=== PATIENT | female | born 1990 | race Caucasian/White ===

== ENCOUNTER 2023-08-28 11:15 | Emergency (ER) | payer BC, SELFPAY ==
[2023-08-28 11:18] VITALS: BP 154/94; PULSE 80; RESP 20; TEMP 36.7; O2SAT 100; BMI 31.3
[2023-08-28 11:37] VITALS: RESP 14
--- NOTE | 2023-08-28 11:37 | ED_ITS ---
HPI - General Adult General Time Seen by Provider: 11:37 Date Seen: 08/28/23 Chief complaint: Post Op Complication Stated complaint: infection - post surgical Time Seen by Provider: 08/28/23 11:33 Source: patient and RN notes reviewed Mode of arrival: ambulatory Limitations: no limitations History of Present Illness HPI narrative: This 33-year-old female is referred to us from [place] where she had ultrasound imaging today. She reportedly has an abscess complicating a liposuction procedure that was done on August 08 in [place]. She had a lipoma 360 fat transfer to her buttocks. She has noticed swelling in her legs, most prominent in the left thigh for about 2 weeks now. She feels that she has maybe been having some fevers at night. She has just been using Tylenol for pain management. This left thigh is painful to touch. She saw a provider on Monday whom ordered an outpatient follow-up ultrasound for concern of possible fluid or hematoma. There reportedly is no general surgeon in [place] and our facility was contacted. Our radiologist Dr. Bach and our general surgeon Dr. Velazquez did recommend that the patient come here, CT imaging and labs be considered, requested that she be evaluated in the ED appropriately. It was reported that she had a buttock abscess to us in the ED. Related Data Home Medications ?Medication ?Instructions ?Recorded ?Confirmed ascorbic acid (vitamin C) 500 mg 500 mg PO DAILY 08/28/23 08/28/23 tablet (Vitamin C With Graciela Hips) losartan 25 mg tablet 25 mg PO DAILY 08/28/23 08/28/23 semaglutide 1 mg/dose (4 mg/3 mL) 1 mg subcut 08/28/23 subcutaneous pen injector (Ozempic) Allergies Allergy/AdvReac Type Severity Reaction Status Date / Time No Known Drug Allergies Allergy Verified 08/28/23 12:57 Review of Systems Status of ROS: Reports: 6 or more systems reviewed and unremarkable except as noted in History and below [facility] Surgical History (Updated 08/28/23 @ 11:50 by Suly Bloom MD) History of tubal ligation ?Z98.51 - Tubal ligation status (ICD-10) Social History Smoking Status: Never smoker Do you use any of these nicotine containing products: None How often do you have a drink containing alcohol: monthly or less How often do you have six or more drinks on one occasion: Never AUDIT-C Alcohol total score: 1 Non-prescribed substance use: denies use Exam Const: Vital Signs, click to edit/add: Vital Signs - 24 hr 08/28/23 11:18 08/28/23 11:37 Temperature 98.1 F Pulse Rate [Pulse Oximeter] 80 Respiratory Rate 20 Respiratory Rate [ Left Lateral Leg] 14 Blood Pressure [Ri ght Upper Arm] 154/94 H Pulse Oximetry 100 Oxygen Delivery Me thod Room Air This 33-year-old female is alert, interactive, no apparent distress. She has a cushion that she is sitting on, is preferring the chair in exam room 7. Sclera clear, face atraumatic, speech normal. Lungs clear, good air entry, no wheezing crackles. CV regular rate and rhythm, no murmur, normal S1-S2, no S3-S4. Over her left lateral trochanter area she has some mild erythema, central fluctuance in tenderness throughout this area it looks to be about 8-10 cm long, maybe about 6-8 cm wide. Certainly could be a seroma or abscess clinically. She has very small well-healing incisions over her upper buttocks. There is some mild left medial gluteal ecchymosis. Her buttocks are not tender, this concerning finding seems to be actually in the extremity over the left thigh. Abdomen is soft, nontender, and nondistended. Documenting provider has reviewed patient's vital signs: yes Course Course ED Course: This patient presumably has a complication of liposuction with possible left thigh abscess. Will obtain imaging of her pelvis and carry it into the left upper extremity with CT imaging. Will get basic labs. She is not febrile at this time but is stating she has fevers at night. In this patient, do not feel blood cultures are indicated at this time. There is a severe national shortage of the blood culture vials in the system we are using and we are nearly out. Should she spike a fever or have further concerns here, this can be reconsidered. Reevaluation(s) Time of Reevaluation #1: 13:33 Reevaluation #1: Reviewed reassuring labs. Did review with patient that her hemoglobin is 10.7, we did discuss the possibility of her menstrual cycles as the cause of this. She can talk to her primary care about this further outpatient. There is no evidence clinically of infection at this time. She does have a seroma / hematoma in her left thigh. Did apply an Arsalan bandage. She felt like it was fitting but not too tight. Reviewed the surgeon's recommendations for treatment. Consultations Consultation #1: General surgeon Dr. Velazquez did stop by, we reviewed the images. She feels that this is likely seroma/ hematoma. We reviewed patient's labs. She would not recommend drainage of this, does not believe that antibiotics are necessary from the images, labs and my report of the clinical exam. She has made recommendations for compression, alternating ice and heat and follow up in clinic with Dr. Gonzáles. Time: 13:02 Vital Signs Vital signs: Initial Vital Signs Temperature 98.1 F 08/28/23 11:18 Temperature Source Temporal Artery Scan 08/28/23 11:18 Pulse Rate 80 08/28/23 11:18 Respiratory Rate 20 08/28/23 11:18 Blood Pressure 154/94 H 08/28/23 11:18 Blood Pressure Mean 114 H 08/28/23 11:18 Blood Pressure Position Sitting 08/28/23 11:18 Pulse Oximetry 100 08/28/23 11:18 Oxygen Delivery Method Room Air 08/28/23 11:18 Vital Signs Temperature 98.1 F 08/28/23 11:18 Pulse Rate 80 08/28/23 11:18 Respiratory Rate 20 08/28/23 11:18 Blood Pressure 154/94 H 08/28/23 11:18 Pulse Oximetry 100 08/28/23 11:18 Oxygen Delivery Method Room Air 08/28/23 11:18 Temperature 98.1 F 08/28/23 11:18 Pulse Rate 80 08/28/23 11:18 Respiratory Rate 14 08/28/23 11:37 Blood Pressure 154/94 H 08/28/23 11:18 Pulse Oximetry 100 08/28/23 11:18 Oxygen Delivery Method Room Air 08/28/23 11:18 Medical Decision Making Lab Data Lab results reviewed: Yes I reviewed the patient's lab results Labs: Lab Results 08/28/23 Range/Units 12:04 WBC 4.96 (4.50-11.00) K/uL RBC 3.81 L (4.00-5.20) m/uL Hgb 10.7 L (12.0-16.0) gm/dL Hct 34.9 (33.0-51.0) % MCV 92 (80-100) fL MCH 28 (26-34) pg MCHC 31 L (32-36) gm/dL RDW Coeff of [place] 16.5 H (11.5-15.5) % Plt Count 249 (140-440) K/uL Neut % (Auto) 57.1 (42.0-72.0) % Lymph % (Auto) 30.0 (20-44) % [place] % (Auto) 8.7 (0.0-11.0) % Eos % (Auto) 3.2 (0.0-7.0) % Baso % (Auto) 1.0 (0.0-3.0) % Neut # (Auto) 2.83 (1.7-7.0) K/uL Lymph # (Auto) 1.49 (0.90-2.90) K/uL [place] # (Auto) 0.40 (0.00-0.90) K/UL Eos # (Auto) 0.16 (0.00-0.50) K/uL Baso # (Auto) 0.05 (0.00-0.30) K/uL Abs Immat Gran (auto) 0.00 (0.00-0.30) K/uL Imm/Tot Granulo (auto) 0.0 % Sodium 138 (135-149) mmol/L Potassium 4.0 (3.6-5.1) mmol/L Chloride 106 (96-114) mmol/L Carbon Dioxide 25 (20-32) mmol/L Anion Gap 7 (7-15) mEq/L BUN 17 (5-24) mg/dL Creatinine 0.5 (0.5-1.5) mg/dL Estimated Creat Clear 144.00 Estimated GFR 127 ml/min Glucose 93 (60-115) mg/dL Lactate 1.0 (0.5-1.9) mmol/L Calcium 9.1 (8.4-10.6) mg/dL C-Reactive Protein < 0.5 L (0.5-1.0) mg/dL Urine HCG, Qual Negative (Negative) Imaging Data CT pelvis: Attestation: I have reviewed the pertinent imaging results. Radiologist's impression: Patient: [facility] Facility:?[facility] Patient ID:?[id number] Site Patient ID:?[id number]. Site :?1990 Study:?CT-Pelvis W/ 92CC ISOVUE 370-08/28/2023 1:02:25 PM Ordering Physician:Maggie Tubbs Final Report: Indication: Clinical signs and symptoms of thigh infection status post liposuction. Technique: CT of the pelvis was performed. The study was performed following the uneventful intravenous administration of 92 cc of Isovue 370. Imaging was acquired from above the umbilicus through below the lesser trochanter. Sagittal and coronal reformatted imaging was performed. PLEASE NOTE that the left femur portion of the study was performed as a separate study and is reported as a separate examination Please note that all CT scans at this facility use dose modulation, iterative reconstruction, and/or weight-based dosing when appropriate to reduce radiation dose to as low as reasonably achievable. Comparison: None prior to today Findings: The osseous structures of the lower spine and pelvis appear normal. There is no soft tissue abnormality identified within the lower abdomen or pelvis. There is cutaneous and subcutaneous induration diffusely involving the visualized abdominal wall and upper thighs. This is likely either hemorrhage or less likely infection associated with recent liposuction. There is no collection identified in the areas visualized on this examination. This study does not include the discrete fluid collection noted in the left thigh which was identified and described on a separate study Impression: 1. Mild diffuse cutaneous and subcutaneous induration of the lower abdominal wall and upper thigh as visualized. No collection. 2. The fluid collection in the soft tissue images of the left thigh are not visualized on this study. The left thigh examination was reported under separate cover. Please note that all CT scans at this facility use dose modulation, iterative reconstruction, and/or weight-based dosing when appropriate to reduce radiation dose to as low as reasonably achievable. Dictated by Ottoniel Mckenzie MD @ 08/28/2023 1:26:29 PM (Electronic Signature) CT left thigh: Attestation: I have reviewed the pertinent imaging results. Radiologist's impression: Patient: ESME GORDON Facility:?[facility] Patient ID:?[id number] Site Patient ID:?[id number]. Site :?1990 Study:?CT-Extremity Left FEMUR W/92CC ISOVUE 370-08/28/2023 1:04:18 PM Ordering Physician:Maggie Tubbs Final Report: EXAM: CT OF THE LEFT FEMUR, WITH IV CONTRAST CLINICAL INDICATION: Post liposuction infection COMPARISON PLAIN FILMS: None. COMPARISON CROSS-SECTIONAL IMAGING STUDIES: None. TECHNICAL: Enhanced CT of the left femur with axial images. Sagittal oblique and coronal oblique images were created. Contrast: Isovue 370, 92 mL IV. FINDINGS: OSSEOUS STRUCTURES: No fracture or osseous lesion. SOFT TISSUES: Elliptical complex fluid collection in the lateral subcutaneous tissues of the proximal to mid femoral diaphyseal region measures 11.3 x 5.4 x 2.4 cm. There is a layering fluid fluid level. Findings consistent with a hematoma/seroma. Infection of the fluid collection could not be excluded. [id number] amount of lateral subcutaneous edema. Subcutaneous edema in the left hip, gluteal and lower abdominal wall. No soft tissue emphysema. TENDONS AND MUSCLES: No intramuscular fluid collection or hematoma. No muscular atrophy. No retracted tendon tear. JOINTS: No joint effusion. IMPRESSION: 1. Complex fluid collection in the lateral subcutaneous tissues of the proximal to mid femoral diaphyseal region with layering fluid fluid level. Adjacent subcutaneous edema. Findings consistent with a hematoma/seroma. Infection of the fluid collection can not be excluded. 2. Subcutaneous edema in the left hip, gluteal and lower abdominal wall. 3. Remainder unremarkable. Please note that all CT scans at this facility use dose modulation, iterative reconstruction, and/or weight-based dosing when appropriate to reduce radiation dose to as low as reasonably achievable. Dictated by Taurus Gutierrez MD @ 08/28/2023 1:17:41 PM (Electronic Signature) Discharge Plan Discharge Clinical Impression: Seroma Hematoma of left thigh Qualifiers: Encounter type: initial encounter Qualified Code(s): S70.12XA - Contusion of left thigh, initial encounter Patient Disposition: Home, Self-Care Condition: Stable Instructions: Hematoma (ED) Additional Instructions: Use Arsalan wrap for compression. Alternate ice and heat to this leg to help decrease pain and swelling. Need to schedule follow-up in clinic within the next week for recheck. If you develop consistent temperatures over 100.4? F, have increasing pain, redness, swelling at the site of the hematoma, please seek re-evaluation. Continue to follow your postoperative recommendations from your surgeon. Prescriptions: No Action ascorbic acid (vitamin C) [Vitamin C With Graciela Hips] 500 mg tablet 500 mg PO DAILY losartan 25 mg tablet 25 mg PO DAILY Ozempic 1 mg/dose (4 mg/3 mL) pen injector 1 mg subcut Follow Up/Referrals: Sachi Gonzáles MD [Primary Care Provider] - Stand Alone Forms: [employer] Info Instructions
--- NOTE | 2023-08-28 11:44 | CRLHL7_ITS ---
For Patients: As a result of the Century Cures Act, medical imaging exams and procedure reports are released immediately into your electronic medical record. You may view this report before your referring provider. If you have questions, please contact your health care provider. EXAM: CT OF THE LEFT FEMUR, WITH IV CONTRAST CLINICAL INDICATION: Post liposuction infection COMPARISON PLAIN FILMS: None. COMPARISON CROSS-SECTIONAL IMAGING STUDIES: None. TECHNICAL: Enhanced CT of the left femur with axial images. Sagittal oblique and coronal oblique images were created. Contrast: Isovue 370, 92 mL IV. FINDINGS: OSSEOUS STRUCTURES: No fracture or osseous lesion. SOFT TISSUES: Elliptical complex fluid collection in the lateral subcutaneous tissues of the proximal to mid femoral diaphyseal region measures 11.3 x 5.4 x 2.4 cm. There is a layering fluid fluid level. Findings consistent with a hematoma/seroma. Infection of the fluid collection could not be excluded. Ktty-[id number] amount of lateral subcutaneous edema. Subcutaneous edema in the left hip, gluteal and lower abdominal wall. No soft tissue emphysema. TENDONS AND MUSCLES: No intramuscular fluid collection or hematoma. No muscular atrophy. No retracted tendon tear. JOINTS: No joint effusion. IMPRESSION: 1. Complex fluid collection in the lateral subcutaneous tissues of the proximal to mid femoral diaphyseal region with layering fluid fluid level. Adjacent subcutaneous edema. Findings consistent with a hematoma/seroma. Infection of the fluid collection can not be excluded. 2. Subcutaneous edema in the left hip, gluteal and lower abdominal wall. 3. Remainder unremarkable. Please note that all CT scans at this facility use dose modulation, iterative reconstruction, and/or weight-based dosing when appropriate to reduce radiation dose to as low as reasonably achievable. Dictated by Taurus Gutierrez MD @ 08/28/2023 1:17:41 PM (Electronically Signed)
--- NOTE | 2023-08-28 11:44 | CRLHL7_ITS ---
For Patients: As a result of the Century Cures Act, medical imaging exams and procedure reports are released immediately into your electronic medical record. You may view this report before your referring provider. If you have questions, please contact your health care provider. Indication: Clinical signs and symptoms of thigh infection status post liposuction. Technique: CT of the pelvis was performed. The study was performed following the uneventful intravenous administration of 92 cc of Isovue 370. Imaging was acquired from above the umbilicus through below the lesser trochanter. Sagittal and coronal reformatted imaging was performed. PLEASE NOTE that the left femur portion of the study was performed as a separate study and is reported as a separate examination Please note that all CT scans at this facility use dose modulation, iterative reconstruction, and/or weight-based dosing when appropriate to reduce radiation dose to as low as reasonably achievable. Comparison: None prior to today Findings: The osseous structures of the lower spine and pelvis appear normal. There is no soft tissue abnormality identified within the lower abdomen or pelvis. There is cutaneous and subcutaneous induration diffusely involving the visualized abdominal wall and upper thighs. This is likely either hemorrhage or less likely infection associated with recent liposuction. There is no collection identified in the areas visualized on this examination. This study does not include the discrete fluid collection noted in the left thigh which was identified and described on a separate study Impression: 1. Mild diffuse cutaneous and subcutaneous induration of the lower abdominal wall and upper thigh as visualized. No collection. 2. The fluid collection in the soft tissue images of the left thigh are not visualized on this study. The left thigh examination was reported under separate cover. Please note that all CT scans at this facility use dose modulation, iterative reconstruction, and/or weight-based dosing when appropriate to reduce radiation dose to as low as reasonably achievable. Dictated by Ottoniel Mckenzie MD @ 08/28/2023 1:26:29 PM (Electronically Signed)
--- OUTSIDE RECORDS SUMMARY | 2023-08-28 11:56 | XMS_ITS | Clinical Summary ---
Author Organization [facility] Address [place], [place] [address] Care Team Providers Care [employer] Crewmember Name Role Phone Sachi Gonzáles MD Primary Care Provide r Allergies Active Allergy Reactions Criticality Noted Date Comments Lisinopril Angioedema 06/10/2021 Nsaids (Non-Steroidal Anti-Inflammatory Drug) Other - Describe In Comment Field Unknown 04/05/2021 H/o jeff-n-y gastric bypass. AVOID NSAIDs and aspirin due to risk of gastric and/or G-J anastomotic ulcers. If Genoveva must be on short course of NSAIDs or aspirin, use enteric coated if possible and use PPI // Kaylan Clemens RN, Bariatric Nurse Clinician, [facility] Weight Management 04/05/2021 Medications Medication Sig Dispensed Refills Start Date End Date Status lancets (Microlet Lancet)Indications: Type 2 diabetes mellitus without complication, without long-term current use of insulin (HC) USE TWICE DAILY 200 Each 3 1 Active pediatric multivitamins-iron 18 mg chewable (Childrens Multivitamins/Iron) chewable tabletIndications:A chlorhydria,S/P gastric bypass Chew 2 Tablets by mouth once daily. 60 Tablet 2 Active cyanocobalamin (VITAMIN B12) 1,000 mcg sublingual tabletIndications:A chlorhydria,S/P gastric bypass Place 1 Tablet (1,000 mcg) under the tongue once daily. 30 Tablet 2 Active ondansetron (ZOFRAN ODT) 4 mg disintegrating tabletIndications:N ausea and vomiting, unspecified vomiting type DISSOLVE 1 TABLET IN MOUTH EVERY 8 HOURS NEEDED FOR NAUSEA AND VOMITING 30 Tablet 2 Active nystatin (MYCOSTATIN) creamIndications:In tertrigo Apply topically to affected area(s) two times daily. 30 g 2 3 Active polyethylene glycoL (MIRALAX) 17 gram/scoop powderIndications:C hronic constipation TAKE 17 GRAMS ONCE DAILY NEEDED. DISSOLVE EACH 17 GRAM DOSE IN 8 OUNCES LIQUID AND DRINK MIXTURE. 1530 g 3 3 Active EPINEPHrine (EPIPEN) 0.3 mg/0.3 mL auto-injectorIndica tions:Hives Inject 0.3 mg (1 pen.) intramuscular each time if needed for Allergic Reaction. 2 Each 3 3 Active hydrOXYzine HCL (ATARAX) 25 mg tabletIndications:H elia,Itching Take 2 Tablets (50 mg) by mouth every 6 hours if needed for Itching. 30 Tablet 3 Active semaglutide (Ozempic) 1 mg/dose (4 mg/3 mL) penIndications:Cont rolled type 2 diabetes mellitus without complication, without long-term current use of insulin (HC) Inject 1 mg subcutaneous once weekly. 3 mL 11 3 Active Additional Information Patient taking differently:1 mg Subcutaneous Q WEEKLY,on hold due to surgery, Reason: See Comment (currently taking 08/24/23), Reported on 08/24/2023 ketoconazole 2% shampoo (NIZORAL) 2 % shampooIndications: Seborrheic dermatitis of scalp Apply topically to affected area(s) once daily if needed for Dry Scalp. Lather on damp scalp, leave on for 5min, then rinse with water. 360 mL 6 4 Active ascorbic acid, vitamin C, (Vitamin C) 500 mg tabletIndications:S /P gastric bypass Take 1 Tablet (500 mg) by mouth once daily. 30 Tablet 11 4 Active losartan (COZAAR) 25 mg tabletIndications:H TN (hypertension),Mercedes oedema, initial encounter Take 1 Tablet (25 mg) by mouth once daily. 90 Tablet 3 4 Active ferrous gluconate 324 mg (37 mg iron) tabletIndications:I tyler deficiency anemia secondary to inadequate dietary iron intake Take 1 Tablet by mouth once daily with a meal. 30 Tablet 2 4 Active triamcinolone 0.1 % ointmentIndications :Rash APPLY OINTMENT TOPICALLY TO AFFECTED AREA TWICE DAILY 30 g 4 Active metoclopramide HCl (REGLAN) 10 mg tablet TAKE 1 TABLET BY MOUTH FOUR TIMES DAILY 30 MINUTES BEFORE MEALS AND AT BEDTIME 4 08/24/19 24 Discontinue d(*Patient states no longer taking) valACYclovir (VALTREX) 1 gram tabletIndications:H erpes zoster without complication Take 1 Tablet (1 g) by mouth three times daily for 7 days. 21 Tablet 4 08/22/19 24 Active Problems Patient Care Coordination No te Formatting of this note is d ifferent from the original. Weight Management - Adult Surgical Program Initial Consult 03/20/2020 Dr. Joel Anderson Nutrition Order 03/20/20 Kaylan Clemens RN is the Bariatric Nurse Clinician. Intake: Wt Readings from Last 1 Encounters: 03/20/20 110 kg (242 lb 6.4 oz) lbs Planned Operation Jeff-en-Y Gastric Bypass Payor: [facility] / Plan: [facility] / Product Type: *No Product type* / Insurance requirements:H Pylori , 6 diet Est. Pgm Completion: October, Procedure Location: [facility] Co-morbidities: DM, HTN, NAFLD, metabolic syndrome Orders: Labs Yes---04/01/20- low d and positive h.pylori- will tx and recheck in 1 month after tx---after 05/13/20 NEGATIVE-H. PYLORI Imaging Abdominal Ultrasound---04/02/20- Normal US Pre-Surgery Program Consults: - Registered Dietitian 6 Cleared 10/14/2020-Ryna - Psychological Evaluation: CLEARED 06/29/20 Referrals: No - Future Appointments Date Time Provider Department Center 03/25/2020 1:[address] [facility] Problem Noted Date Diagnosed Date S/P abdominoplasty 12/20/2022 Type 2 diabetes mellitus wit hout complication, without long-term current use of insulin 12/20/2022 Abdominal pannus 08/26/2022 Pap smear for cervical cancer screening 07/23/19 23 Overview: 06/2022 NIL/HPV Negative Plan: Pap/HPV testing due in 5 years IUD (intrauterine device) in place 10/26/2017 Overview: placed 03/03/17 Anemia, antepartum, third trimester 01/17/2017 Chronic hypertension with superimposed preeclamp loree 01/17/2017 Morbid obesity with BMI of 40.0-44.9, adult 06/2016 Elevated liver enzymes 01/17/2017 Maternal morbid obesity, antepartum, third trime ster 01/17/2017 HTN (hypertension) 10/13/2015 PCOS (polycystic ovarian syndrome) 06/09/2015 Shingles 05/13/2010 Unspecified hypothyroidism 04/18/2008 Resolved Problems Problem Noted Date Diagnosed Date Resolved Date induced vagina regan velasquez (maternal severe preeclampsia) 01/18/2017 10/26/2017 Severe superimposed preeclam psia, 35 weeks EGA 01/17/2017 10/26/2017 Overview: LEZAMA, abd pain, elevated AST Thrombocytopenia affecting p regnancy, antepartum 01/17/2017 01/18/2017 12/19/2016 01/18/2017 Overview: Estimated Date of Delivery: 02/22/17 Patient's last menstrual period was 04/12/2016 (exact date). Last Tdap- 04/14/2011 Last Flu vaccine- 11/30/2016 No Known Allergies Obstetric History T2 L3 SAB0 TAB0 Ectopic0 Multiple0 Live Births3 # Outcome Date GA Lbr Jabari/2nd Weight Sex Delivery Anes PTL Lv 4 Current 3 05/21/12 F Vag NORY Name: Sierra 2 Term 11/17/09 38w0d F VAGINAL FRANNY N NORY Name: Radha 1 Term 07/17/07 40w0d 16:00 3.232 kg (7 lb 2 oz) F Vag NORY Name: valeria Obstetric Comments menarche-12 Component Latest Ref Rng & Units 06/22/2016 06/22/2016 06/22/2016 4:36 PM 4:36 PM 4:36 PM HEMOGLOBIN 12.0 - 16.0 g/dL 13.6 MCV 80 - 100 fL 86 ANTIBODY SCREEN Negative Negative SPECIMEN EXPIRATION DATE/TIME 06/25/16 23:59 RUBELLA IGG ANTIBODY Positive 2.50 CHLAMYDIA PROBE N GONORRHOEAE PROBE GLUCOSE,GESTATIONAL 65 - 139 mg/dL PATIENT STATUS HIV-1/HIV-2 ANTIBODY Non-Reactive Non-Reactive ABORH B Rh Positive HBSAG Nonreactive Nonreactive TREPONEMA PALLIDUM Negative Negative LYME SCREEN W/REFLEX WEST BLOT Negative Negative HEMOGLOBIN A1C SCREENING <6.4 % 5.7 Component Latest Ref Rng & Units 07/01/2016 10/11/2016 10/28/2016 HEMOGLOBIN 12.0 - 16.0 g/dL 11.0 (L) MCV 80 - 100 fL 87 ANTIBODY SCREEN Negative SPECIMEN EXPIRATION DATE/TIME RUBELLA IGG ANTIBODY CHLAMYDIA PROBE Negative Negative N GONORRHOEAE PROBE Negative Negative GLUCOSE,GESTATIONAL 65 - 139 mg/dL 139 PATIENT STATUS NOT GIVEN HIV-1/HIV-2 ANTIBODY Non-Reactive ABORH HBSAG Nonreactive TREPONEMA PALLIDUM Negative LYME SCREEN W/REFLEX WEST BLOT Negative HEMOGLOBIN A1C SCREENING <6.4 % Past Medical History: Diagnosis Date ? ? HTN (hypertension) ? ? Irregular menses Past Surgical History: Procedure Laterality Date ? ? NO PREVIOUS SURGERY No data on file. 4th Problems (from 06/22/16 to present) No problems associated with this episode. JOHNNY Fischer.....12/19/2016 10:39 AM Supervision of high risk pre gnancy in second trimester 09/02/2016 10/26/2017 Supervision of high risk pre gnancy in first trimester 07/01/2016 09/30/2016 -induced hypertensi on in first trimester 07/01/2016 09/30/2016 Infertility, female 09/21/2015 01/18/[address] 01/04/2013 03/05/2015 Overview: 06/22/12 placed Supervision of other normal 02/24/2012 09/29/2012 Hypertension in , preeclampsia/eclampsia/prior HTN/antepartum 11/12/2009 10/13/2015 Supervision of other normal 04/10/2009 04/08/2010 state, incidental 01/19/2007 0 04/15/2008 Encounters Date Type Department Care Team Description 08/28/2023 8:45 AM CDT Hospital Encounter [facility] [address] [facility] [place] [address] Sachi Gonzáles MD Hematoma of left thigh, initial encounter 08/28/2023 Orders Only [facility] [address] [place] [address] Felipa Velazquez MD <No scans attached> 08/28/2023 Telephone [facility] [address] [place] [address] Yash Woods MD Results 08/28/2023 Travel 08/24/2023 9:05 AM CDT Office Visit [facility] [address] [place] [address] Sachi Gonzáles MD Post-op (08/09/23 plastic surgery--lipo suction with fat transfer to the buttocks); Shingles (Diagnosed and started treatment 08/14) 08/24/2023 Travel 08/15/2023 12:25 PM CDT Office Visit [facility] [address] [place] [phone] Eboni Wright NP Derm Problem (noticed rash yesterday on right knee. hx shingles same place/had surgery last week) 08/15/2023 Travel 08/15/2023 Telephone [facility] [address] [place] [address] Sachi Gonzáles MD Medication Management 07/17/2023 Travel 07/12/2023 Telephone [facility] [address] [place] [phone] Eboni Wright NP Results 07/11/2023 3:30 PM CDT Office Visit [facility] [address] [place] [phone] Morales Urban PA Throat Problem 07/11/2023 Travel 07/11/2023 Telephone [facility] [address] [place] [address] Sachi Gonzáles MD Lab (LAB ORDERS) 07/07/2023 Telephone [facility] [address] [place] [address] [address] Sachi Gonzáles MD Questions 06/13/2023 9:40 AM CDT Preop Visit [facility] [address] [place] [address] Sachi Gonzáles MD Pre-Op Exam (Lab review) 06/13/2023 Travel 06/09/2023 3:00 PM CDT Nurse/Clinic Staff Only [facility] [address] [address] Infusion Therapy (Feraheme #2 ) 06/09/2023 Travel 06/05/2023 Orders Only [facility] Scanner 1 scan: (1-Ord) INCOMING RECORDS-DIABETIC EYE, [facility], 06/05/2023 06/02/2023 3:00 PM CDT Nurse/Clinic Staff Only [facility] [address] [place] [address] [address] Infusion Therapy (Feraheme 1/2) 06/02/2023 Travel 05/30/2023 3:05 PM CDT Preop Visit [facility] [address] [place] [address] [address] Sachi Gonzáles MD Pre-Op Exam (Lipo 360 with fat transfer to the buttocks/Date of Surgery: Unknown/Surgical Specialty: Dr.Todd Awad ///) 05/30/2023 Telephone [facility] [address] [place] [address] [address] Sachi Gonzáles MD Referral (IV iron infusions) 05/30/2023 Travel from Last 3 Months Immunizations Name Administration Dates Next Due AMB Influenza, IIV4 PF (=>6 mos Flulaval,Fluzone Fluarix)(Flu Clinic Only) 11/30/2016 DTaP 04/14/2011 Human Papilloma Virus Vaccine 03/12/2015, 012,07/11/2006 Influenza, IIV3 (Age >=3 years) 01/19/2007 Influenza, IIV4 02/26/2021, 0,11/23/2018,2017,11/30/2016,03/12/2015,10/29/2013 Pneumococcal Poly,23-Valent (Pneumovax) 02/26/2021 Tdap 01/13/2017,05/18/2012 Family History Medical History Relation Name Comments Hypertension Father Cancer Mother endocervical Diabetes Paternal Aunt 3 Diabetes Paternal Grandmother Diabetes Paternal Uncle 1 Relation Name Status Comments Father Mother Paternal Aunt Paternal Grandmother Paternal Uncle Social History Tobacco Use Types Packs/Day Years Used Date Smoking Tobacco: Former Cigarettes Q uit: 02/26/2017 Smokeless Tobacco: Never Tobacco Cessation:Counseling Given: Not Answered Comments:never Alcohol Use Standard Drinks/Week Comments Not Currently 0 (1 standard drink = 0.6 oz pur e alcohol) PHQ-2 Answer Date Recorded PHQ-2 TOTAL SCORE 0 05/30/2023 Social Connections Answer Date Recorded Frequency of Communication with Friends and Fami ly 0 12/20/2022 Financial Resource Strain Answer Date R ecorded Difficulty of Paying Living Expenses 3 12/20/2022 Difficulty of Paying Living Expenses Not on file 12/20/2022 Food Insecurity Answer Date Recorded Worried About Running Out of Food in the Last Ye ar 1 12/20/2022 Transportation Needs Answer Date Record ed Lack of Transportation (Medical) 1 12/20/2022 Housing Stability Answer Date Recorded Unable to Pay for Housing in the Last Year 1 12/20/2022 Sex and Gender Information Value Date Recorded Sex Assigned at Not on file Gender Identity Not on file Sexual Orientation Not on file Obstetrics History Para Term AB IAB SAB Ectopic Multiple Livin g Live Births 4 4 3 1 0 0 0 0 0 4 4 Date Outcome GA Total Labor Labor/2nd/3rd Weight Sex Type Anes PTL Nory A1 A5 Name Clin 2007 Term 40w 0d 16h 00m/ 3.23 kg (7 lb 2 oz) F Vag Livin g belind a 2009 Term 38w 0d F VAGINA L FRANNY N Livin g Yuriti zi Comments:inducted for [facility] 2012 Term 40w 0d F Vag Livin g Sierra 2016 35w 0d 2.8 kg (6 lb 2.8 oz) F VAGINA L FRANNY Epidu ral,I V Meds N Livin g Perri storm s Complications:None Delivery Location[place] Comments menarche-12 Last Filed Vital Signs Vital Sign Reading Time Taken Comments Blood Pressure 126/85 08/24/2023 9:51 AM CDT Pulse 68 08/24/2023 9:51 AM CDT Temperature 36.6 ??C (97.9 ??F) 08/15/2023 1 2:32 PM CDT Respiratory Rate 16 08/15/2023 12:3 2 PM CDT Oxygen Saturation 100% 08/24/2023 9:51 AM CDT Inhaled Oxygen Concentration - - Weight 85.7 kg (188 lb 14.4 oz) 08/24/2023 9:51 AM CDT Height 157.5 cm (5' 2) 05/03/2023 7:41 AM CDT Body Mass Index 34.55 05/03/2023 7:41 AM CDT Plan of Treatment Upcoming Encounters Date Type Department Care Team (Late st Contact Info) Description 09/04/2023 2:30 PM CDT Office Visit [facility] [address] [place] [phone] Elias Batista MD [address] [place] [address] Health Maintenance Due Date Last Done Comments Hepatitis B series for Diabe raghu (1 of 3 - 19+ 3-dose series) 2009 Pneumococcal series for age 6-64 (2 of 2 - PCV) 02/26/2022 02/26/2021 COVID-19 vaccine series ( - 2022- season) 2022 02/17/2021, 04/09/2020, 03/12/2020 Influenza for age 9-49 10/15/2023 , 01/07/2020, 11/23/2018, Additional history exists BMI (ht and wt on same day) for age 18+ 04/26/2024 04/27/2023, 03/30/2023, 09/08/2022, Additional history exists Depression screening for age 12+ 06/01/2024 06/02/2023, 05/30/2023, 05/30/2023, Additional history exists Tetanus booster 01/13/2027 01/13/2017, 05/18/2012 Pap test for age 21-65 06/18/2027 , 06/17/2022, 10/26/2017, Additional history exists Tdap Completed 01/13/2017, 05/18/2012 HIV for age 15-65 Completed 12/20/2022, , 04/14/2009, Additional history exists Hepatitis C screening for ag e 18-79 Completed 12/20/2022 Goals Goal Patient Goal Type Associated Problems Recent Progress Patient-Stated? Author BLOOD PRESSURE - Maintains BP less than 140/90 Blood Pressure No Sue Pena Procedures Procedure Name Priority Date/Time Associated Diagnosis Comments US LOWER EXTREMITY SOFT TISSUE LEFT Routine 08/28/2023 9:20 AM CDT Hematoma of left thigh, initial encounter RED CELL MORPHOLOGY Routine 07/17/2023 2 :26 PM CDT Thrombocytopenia due to blood loss PLATELET ESTIMATE Routine 07/17/2023 2:2 6 PM CDT Thrombocytopenia due to blood loss CBC WITH AUTO DIFFERENTIAL Routine 07/17/2023 2:26 PM CDT Thrombocytopenia due to blood loss CBC WITH AUTO DIFFERENTIAL Routine 07/17/2023 2:26 PM CDT Thrombocytopenia due to blood loss STREP A PCR STAT 07/11/2023 3:50 PM CDT Sore throat THROAT RAPID STREP A WITH REFLEX STAT 07/11/2023 3:50 PM CDT Sore throat RED CELL MORPHOLOGY Routine 06/13/2023 9 :52 AM CDT Iron deficiency anemia secondary to inadequate dietary iron intake PLATELET ESTIMATE Routine 06/13/2023 9:5 2 AM CDT Iron deficiency anemia secondary to inadequate dietary iron intake CBC WITH AUTO DIFFERENTIAL Routine 06/13/2023 9:52 AM CDT Iron deficiency anemia secondary to inadequate dietary iron intake CBC WITH AUTO DIFFERENTIAL Routine 06/13/2023 9:52 AM CDT Iron deficiency anemia secondary to inadequate dietary iron intake SCAN-EYE EXAM 06/05/2023 12:00 AM CDT FERRITIN Add On 05/30/2023 3:07 PM CDT Iron deficiency anemia secondary to inadequate dietary iron intake CBC WITH AUTO DIFFERENTIAL Routine 05/30/2023 3:07 PM CDT Iron deficiency anemia secondary to inadequate dietary iron intake T4,FREE Routine 05/30/2023 3:07 PM CDT Iron deficiency anemia secondary to inadequate dietary iron intake T3,TOTAL Routine 05/30/2023 3:07 PM CDT Iron deficiency anemia secondary to inadequate dietary iron intake TSH Routine 05/30/2023 3:07 PM CDT Iron deficiency anemia secondary to inadequate dietary iron intake APTT Routine 05/30/2023 3:07 PM CDT Iron deficiency anemia secondary to inadequate dietary iron intake PROTIME-INR Routine 05/30/2023 3:07 PM CDT Iron deficiency anemia secondary to inadequate dietary iron intake COMP METABOLIC PANEL Routine 05/30/2023 3:07 PM CDT Iron deficiency anemia secondary to inadequate dietary iron intake CBC WITH AUTO DIFFERENTIAL Routine 05/30/2023 3:07 PM CDT Iron deficiency anemia secondary to inadequate dietary iron intake ANTI HIV 1/2 Routine 12/20/2022 4:37 PM [facility] Screen for STD (sexually transmitted disease) ANTI HCV Routine 12/20/2022 4:37 PM [facility] Screen for STD (sexually transmitted disease) HPV THIN PREP Routine 06/17/2022 11:15 AM CDT Screening for cervical cancer from Last 3 Months or Most Recently Relevant to Health Maintenance Results * US LOWER EXTREMITY SOFT TISSUE LEFT (08/28/2023 9:20 AM CDT) Anatomical Region Laterality Modality ARM R Ultrasound, Othe r 08/28/2023 10:2 3 AM CDT Addenda Addendum by El Jenkins MD on 08/28/2023 11:12 AM CDT ??ADDENDUM ? ADDENDUM ? ADDENDUM Patient will be seen by Dr. Martinez at [facility]. EL JENKINS M.D. [employer], [employer]. [email or web address] Narrative 08/28/2023 10:23 AM CDT For Patients: ??As a result of the Century Cures Act, medical imaging exams and procedure reports are released immediately into your electronic medical record. ??You may view this report before your referring provider. ?? If you have questions, please contact your health care provider. INDICATION: Hematoma left thigh. TECHNIQUE: Ultrasound left thigh. FINDINGS: There is an irregularly marginated 10 x 7 x 2.5 cm fluid collection, with mobile internal debris, in the left posterior thigh. Patient has a history of prior abdomen liposuction with fat implantation into the buttocks. Therefore this fluid collection in the left thigh could either represent a dissecting hematoma or an abscess. The skin is significantly discolored and warm and therefore an abscess should be excluded on an acute basis. Impression : Irregular fluid collection with internal debris, discoloration and warmth of the skin either representing a postprocedural hematoma or an abscess. The ordering physician was not available. The results were discussed with the on-call physician, Dr Woods. We are making an attempt to triage this patient to a surgical consultation. Dictated by Saurabh Jenkins MD @ 08/28/2023 10:23:56 AM (Electronically Signed) Sachi Gonzáles MD US * (ABNORMAL) CBC WITH AUTO DIFFERENTIAL (07/17/2023 2:26 PM CDT) Only the most recent of3 resultswithin the time period is included. WHITE BLOOD COUNT 6.1 4.5 - 11.0 thou/cu mm 07/17/2023 3:35 PM [facility] RED BLOOD COUNT 5.09 4.00 - 5.20 mil/cu mm 07/17/2023 3:35 PM [facility] HEMOGLOBIN 13.7 12.0 - 16.0 g/dL 07/17/2023 3:35 PM [facility] HEMATOCRIT 42.2 33.0 - 51.0 % 07/17/2023 3:35 PM [facility] MCV 83 80 - 100 fL 07/17/2023 3:35 PM [facility] MCH 26.9 26.0 - 34.0 pg 07/17/2023 3:35 PM [facility] MCHC 32.5 32.0 - 36.0 g/dL 07/17/2023 3:35 PM [facility] RDW 20.4(H) 11.5 - 15.5 % 07/17/2023 3:35 PM [facility] PLATELET COUNT 172 140 - 440 thou/cu mm 07/17/2023 3:35 PM [facility] MPV 07/17/2023 3:35 PM [facility] Comment:Unable to be determi myles % NEUT 56.2 % 07/17/2023 3:35 PM [facility] % LYMPH 34.9 % 07/17/2023 3:35 PM [facility] % MONO 7.4 % 07/17/2023 3:35 PM [facility] % EOS 1.3 % 07/17/2023 3:35 PM [facility] % BASO 0.2 % 07/17/2023 3:35 PM [facility] ABSOLUTE NEUTROPHILS 3.4 1.7 - 7.0 thou/cu mm 07/17/2023 3:35 PM CDT [facility] ABSOLUTE LYMPHOCYTES 2.1 0.9 - 2.9 thou/cu mm 07/17/2023 3:35 PM CDT [facility] ABSOLUTE MONOCYTES 0.5 <0.9 thou/cu mm 07/17/2023 3:35 PM CDT [facility] ABSOLUTE EOSINOPHILS 0.1 <0.5 thou/cu mm 07/17/2023 3:35 PM CDT [facility] ABSOLUTE BASOPHILS 0.0 <0.3 thou/cu mm 07/17/2023 3:35 PM CDT [facility] Blood BLOOD SPECIMEN / Unknown Venipuncture / Unknown 07/17/2023 2:26 PM CDT 07/17/2023 2:26 PM CDT [facility] - 07/17/2023 3:35 PM CDT This procedure was originally ordered at [facility]. Sachi Gonzáles MD HEMATOLOGY [facility] [address] [place] [address] * (ABNORMAL) RED CELL MORPHOLOGY (07/17/2023 2:26 PM CDT) Only the most recent of2 resultswithin the time period is included. Pathologist Ruthy ELLIPTOCYTES Few 07/17/2023 3:35 PM CDT [facility] RBC COMMENT Present(A) RBC morphology appears normal, RBC morphology within normal limits for newborns. 07/17/2023 3:35 PM CDT [facility] LARGE PLATELETS Present 3:35 PM CDT [facility] Blood BLOOD SPECIMEN / Unknown Venipuncture / Unknown 07/17/2023 2:26 PM CDT 07/17/2023 2:26 PM CDT Narrative [facility] - 07/17/2023 3:35 PM CDT This procedure was originally ordered at [facility]. Sachi Gonzáles MD HEMATOLOGY Performing Organization Address [facility] de Phone Number [facility] [address] [place] [address] * PLATELET ESTIMATE (07/17/2023 2:26 PM CDT) Only the most recent of2 resultswithin the time period is included. [facility] PLATELET ESTIMATE Adequate Adequate, No estimate 07/17/2023 3:35 PM CDT [facility] Blood BLOOD SPECIMEN / Unknown Venipuncture / Unknown 07/17/2023 2:26 PM CDT 07/17/2023 2:26 PM CDT Narrative [facility] - 07/17/2023 3:35 PM CDT This procedure was originally ordered at [facility]. Sachi Gonzáles MD HEMATOLOGY Performing Organization Address [facility] Co de Phone Number [facility] [address] [place] [address] * STREP A PCR (07/11/2023 3:50 PM CDT) [facility] GROUP A STREP Negative 07/12/2023 2:13 PM CDT [facility] Throat SPECIMEN FROM THROAT / Unknown Non-Blood / Unknown 07/11/2023 3:50 PM CDT 07/11/2023 4:19 PM CDT Michelle Gutierrez NP MICROBIOLOGY Performing Organization Address [facility] Co de Phone Number [facility] [address] [place] [address], * THROAT RAPID STREP A WITH REFLEX (07/11/2023 3:50 PM CDT) [facility] STREP A ANTIGEN Negative 07/11/2023 4:19 PM CDT [facility] Comment:PCR to follow. Throat SPECIMEN FROM THROAT / Unknown Non-Blood / Unknown 07/11/2023 3:50 PM CDT 07/11/2023 3:59 PM CDT Michelle Gutierrez NP MICROBIOLOGY Performing Organization Address City/[facility]/ZIP Co de Phone Number [facility] [address] [place] [address] * SCAN-EYE EXAM (06/05/2023 12:00 AM CDT) Scanner OTHER * TSH (05/30/2023 3:07 PM CDT) TSH 1.97 0.27 - 4.20 uIU/mL 05/30/2023 10:01 PM CDT [facility] Blood BLOOD SPECIMEN / Unknown Venipuncture / Unknown 05/30/2023 3:07 PM CDT 05/30/2023 3:09 PM CDT Narrative [facility] - 05/30/2023 10:01 PM CDT In Adults, TSH values between 5.00 and 10.00 uIU/ml do not necessarily indicate the presence of Hypothyroidism. Correlation with clinical findings such as presence of goiter and/or Thyroperoxidase (TPO) Antibody may be helpful. For more information please refer to ROBERT 2004; 291: 228-238. Sachi Gonzáles MD CHEMISTRY Performing Organization Address City/[facility]/ZIP Co de Phone Number [facility] [address] [place] [address], * APTT (05/30/2023 3:07 PM CDT) APTT 31 28 - 36 sec 05/31/2023 2:18 PM CDT [facility] Blood BLOOD SPECIMEN / Unknown Venipuncture / Unknown 05/30/2023 3:07 PM CDT 05/30/2023 3:09 PM CDT Narrative [facility] - 05/31/2023 2:18 PM CDT Therapeutic Range: 57-87 seconds Sachi Gonzáles MD HEMATOLOGY Performing Organization Address [facility] Co de Phone Number [facility] [address] [place] [address], * PROTIME-INR (05/30/2023 3:07 PM CDT) INR 0.9 <1.3 05/31/2023 2:18 PM CDT [facility] PROTIME 10.7 10.3 - 12.3 sec 05/31/2023 2:18 PM CDT [facility] Blood BLOOD SPECIMEN / Unknown Venipuncture / Unknown 05/30/2023 3:07 PM CDT 05/30/2023 3:09 PM CDT Narrative [facility] - 05/31/2023 2:18 PM CDT ?Therapeutic Range 2.0-3.0 for most anticoagulated patients 2.5-3.5 or 4.0 for high risk patients The INR is only used for patients on stable oral anticoagulant therapy. It makes no significant contribution to the diagnosis or treatment of patients whose Protime is prolonged for other reasons. INR results are increased when heparin levels exceed 1.0 U/mL, which corresponds to an aPTT >125 seconds if the patient is on UFH. Sachi Gonzáles MD HEMATOLOGY Performing Organization Address [facility] Co de Phone Number [facility] [address] [place] [address], * T3,TOTAL (05/30/2023 3:07 PM CDT) T3,TOTAL 122 85 - 202 ng/dL 05/30/2023 10:01 PM CDT [facility] Blood BLOOD SPECIMEN / Unknown Venipuncture / Unknown 05/30/2023 3:07 PM CDT 05/30/2023 3:09 PM CDT Sachi Gonzáles MD CHEMISTRY Performing Organization Address City/[facility]/ZIP Co de Phone Number [facility] [address] [address], [place] * T4,FREE (05/30/2023 3:07 PM CDT) T4,FREE 1.17 0.93 - 1.70 ng/dL 05/30/2023 10:01 PM CDT [facility] Blood BLOOD SPECIMEN / Unknown Venipuncture / Unknown 05/30/2023 3:07 PM CDT 05/30/2023 3:09 PM CDT Sachi Gonzáles MD CHEMISTRY Performing Organization Address City/[facility]/ZIP Co de Phone Number [facility] [address] [place] [address], [place] * FERRITIN (05/30/2023 3:07 PM CDT) Pathologist [facility] FERRITIN 23.2 15.0 - 150.0 ng/mL 05/30/2023 10:50 PM CDT [facility] Blood BLOOD SPECIMEN / Unknown Venipuncture / Unknown 05/30/2023 3:07 PM CDT 05/30/2023 3:09 PM CDT Sachi Gonzáles MD CHEMISTRY Performing Organization Address City/[facility]/ZIP Co de Phone Number [facility] [address] [place] [address], [place] * (ABNORMAL) COMP METABOLIC PANEL (05/30/2023 3:07 PM CDT) Pathologist [facility] SODIUM 139 136 - 145 mmol/L 05/30/2023 10:01 PM CDT [facility] POTASSIUM 4.9 3.5 - 5.1 mmol/L 05/30/2023 10:01 PM CDT [facility] CHLORIDE 106 98 - 107 mmol/L 05/30/2023 10:01 PM CDT [facility] CO2,TOTAL 23 22 - 29 mmol/L 05/30/2023 10:01 PM CDT [facility] ANION GAP 10 5 - 18 05/30/2023 10:[address] [facility] GLUCOSE 79 70 - 99 mg/dL 05/30/2023 10:[address] [facility] CALCIUM 8.6 8.6 - 10.0 mg/dL 05/30/2023 10:[address] [facility] BUN 11 6 - 20 mg/dL 05/30/2023 10:01 PM [facility] CREATININE 0.69 0.50 - 0.90 mg/dL 05/30/2023 10:[address] [facility] BUN/CREAT RATIO 16 10 - 20 10:01 PM [facility] eGFR >90 >90 mL/min/1.7 3m2 05/30/2023 10:01 PM [facility] Comment:As of 2021, eG FR is calculated by the CKD-EPI creatinine equation without race adjustment. ??eGFR can be influenced by muscle mass, exercise, and diet. ??The reported eGFR is an estimation only and is only applicable if the renal function is stable. ALBUMIN 4.1 4.0 - 4.9 g/dL 05/30/2023 10:[address] [facility] PROTEIN,TOTAL 6.9 6.0 - 8.0 g/dL 05/30/2023 10:[address] [facility] BILIRUBIN,TOTAL 0.4 0.0 - 1.2 mg/dL 05/30/2023 10:[address] [facility] ALK PHOSPHATASE 115(H) 35 - 104 IU/L 05/30/2023 10:01 PM [facility] ALT (SGPT) 24 10 - 35 IU/L 05/30/2023 10:[address] [facility] AST (SGOT) 31 10 - 35 IU/L 05/30/2023 10:01 PM [facility] Blood BLOOD SPECIMEN / Unknown Venipuncture / Unknown 05/30/2023 3:07 PM CDT 05/30/2023 3:09 PM CDT Sachi Gonzáles MD CHEMISTRY Performing Organization Address City/[facility] Co de Phone Number [facility] [address] [place] [address], * ANTI HCV (12/20/2022 4:37 PM [facility]) HEPATITIS C ANTIBODY Non-Reacti ve Non-React yary 12/21/2022 6:34 PM [facility] Comment:Please note, per www .CDC.gov: If a patient is known to be at high risk of HCV infection, or is symptomatic, and the physician's suspicion of HCV infection is high, HCV RNA testing is often employed and is of diagnostic value, even after an initial negative anti-HCV test result. Blood BLOOD SPECIMEN / Unknown Venipuncture / Unknown 12/20/2022 4:37 PM [facility] 12/20/2022 4:37 PM [facility] Sachi Gonzáles MD SEND OUTS Performing Organization Address [facility] Co de Phone Number [facility] [address] [place] [address], [place] * ANTI HIV 1/2 (12/20/2022 4:37 PM [facility]) Pathologist [facility] HIV-1/HIV-2 SCREEN Non-Reacti ve Non-Reacti ve 12/21/2022 6:35 PM [facility] Comment:HIV-1 p24 and HIV-1/ HIV-2 Ab Not Detected. Blood BLOOD SPECIMEN / Unknown Venipuncture / Unknown 12/20/2022 4:37 PM [facility] 12/20/2022 4:37 PM [facility] Sachi Gonzáles MD SEND OUTS Performing Organization Address [facility] Co de Phone Number [facility] [address] [place] [address], [place] * HPV HIGH RISK (06/17/2022 11:15 AM CDT) TYPE 16 Negative Negative 06/22/2022 1:36 PM CDT [facility] TYPE 18 Negative Negative 06/22/2022 1:36 PM CDT [facility] OTHER HIGH RISK TYPES Negative Negative 06/22/2022 1:36 PM CDT [facility] Other (Cervical) Non-Blood / Unknown 06/17/2022 11:15 AM CDT 06/20/2022 5:12 PM CDT Narrative [facility] - 06/22/2022 1:36 PM CDT HPV types 16, 18, 31, 33, 35, 39, 45, 51, 52, 56, 58, 59, 66 and 68 DNA were undetectable or below the pre-set threshold. Methodology: Transaction [employer] 4800 HPV Test Sachi Gonzáles MD MICROBIOLOGY [facility] [address] [place] [address], from Last 3 Months or Most Recently Relevant to Health Maintenance Advance Directives * Full Code (Latest Code Status on File) Date Activated Date Inactivated Comments 04/02/2021 6:02 AM 04/03/2021 7:51 PM Question Answer Comments Code Status Discussion: Not Discussed * Full Code Date Activated Date Inactivated Comments 01/18/2017 2:15 PM 01/22/2017 8:06 PM Question Answer Comments Code Status Discussion: Not Discussed * Full Code Date Activated Date Inactivated Comments 01/17/2017 10:31 PM 01/18/2017 2:15 PM * Full Code Date Activated Date Inactivated Comments 01/17/2017 4:32 PM 01/17/2017 10:31 PM Care Teams [employer] Relationship Specialty Start Date End Date Sachi Gonzáles MD [address] [place] [address] PCP - General Family Practice 02/24/12
[2023-08-28 12:17] LABS: Basophils Absolute Auto 0.05 K/uL (0.00-0.30); Eosinophils Absolute Auto 0.16 K/uL (0.00-0.50); Eosinophils Percent Auto 3.2 % (0.0-7.0); Hematocrit 34.9 % (33.0-51.0); Hemoglobin* 10.7 gm/dL (12.0-16.0); Lymphocytes Absolute Auto 1.49 K/uL (0.90-2.90); Mean Corpuscular HGB Conc 31 gm/dL (32-36); Mean Corpuscular Hemoglobin 28 pg (26-34); Mean Corpuscular Volume 92 fL (80-100); Monocytes Percent Auto 8.7 % (0.0-11.0); Neutrophils Absolute Auto 2.83 K/uL (1.7-7.0); Neutrophils Percent Auto 57.1 % (42.0-72.0); Platelet Count* 249 K/uL (140-440); RDW Coefficient of Variation % 16.5 % (11.5-15.5); Red Blood Count 3.81 m/uL (4.00-5.20); Ur HCG Qualitative* Negative (Negative); White Blood Count* 4.96 K/uL (4.50-11.00)
[2023-08-28 12:23] LABS: Slide Review Reflex No
[2023-08-28 12:40] LABS: Chloride* 106 mmol/L (96-114); Sodium* 138 mmol/L (135-149)
[2023-08-28 12:43] LABS: Creatinine* 0.5 mg/dL (0.5-1.5); Estimated Glomerular Filt Rate 127 ml/min
[2023-08-28 12:44] LABS: Anion Gap 7 mEq/L (7-15); Blood Urea Nitrogen* 17 mg/dL (5-24); Calcium* 9.1 mg/dL (8.4-10.6); Carbon Dioxide* 25 mmol/L (20-32); Glucose* 93 mg/dL (60-115)
[2023-08-28 12:51] LABS: C Reactive Protein* < 0.5 mg/dL (0.5-1.0)
[2023-08-28 13:54] VITALS: BP 127/87; PULSE 70; RESP 16
== END 2023-08-28 13:56 | disposition home or self-care (01) ==
PROVIDERS: Emergency Provider Family Medicine; PCP Family Medicine
DX: L76.34 Postprocedural seroma of skin and subcutaneous tissue following other procedure (principal); S70.12XA Contusion of left thigh, initial encounter
CPT/HCPCS: 36415; 72193; 73701; 80048; 81025; 83605; 85025; 86140; 99284; Q9967